=== PATIENT | female | born 1995 | race African-American/Black ===

== ENCOUNTER 2022-10-05 15:42 | Emergency (ER) | payer OTHER ==
[~2022-10-05] VITALS: Ht 165.1 cm; Wt 100.0 kg
[2022-10-05 17:40] VITALS: BP 140/86
[2022-10-05] MEDS ORDERED: DIPHENHYDRAMINE 50MG/ML VIAL IV ONE (18:15)
[2022-10-05] MEDS ORDERED: METOCLOPRAMIDE HCL 10MG/2ML VIAL IV ONE (18:15)
[2022-10-05] MEDS ORDERED: SODIUM CHLORIDE 0.9% 1,000 ML IV ONE (18:15)
[2022-10-05] MEDS ORDERED: KETOROLAC 15MG/ML VIAL IV ONE (18:15)
== END 2022-10-05 20:41 | disposition home or self-care (01) ==
LOC: ER 15:50
DX: R51.9 Headache, unspecified (principal)
CPT/HCPCS: 81025; 96361; 96374; 96375; 99284; J1200; J1885; J2765; J7030; Z7610

== ENCOUNTER 2022-10-06 16:45 | Emergency (ER) | payer MEDICAID, OTHER ==
[~2022-10-06] VITALS: Ht 165.1 cm; Wt 103.0 kg
[2022-10-06 16:55] VITALS: BP 134/91
[2022-10-06] MEDS ORDERED: DIPHENHYDRAMINE 50MG/ML VIAL IV ONE (17:45)
[2022-10-06] MEDS ORDERED: SODIUM CHLORIDE 0.9% 1,000 ML IV ONE (17:45)
[2022-10-06] MEDS ORDERED: METOCLOPRAMIDE HCL 10MG/2ML VIAL IV ONE (17:45)
[2022-10-06] MEDS ORDERED: KETOROLAC 15MG/ML VIAL IV ONE (17:45)
[2022-10-06] MEDS ORDERED: KETOROLAC 15MG/ML VIAL IV NR (23:00)
[2022-10-06] MEDS ORDERED: METOCLOPRAMIDE HCL 10MG/2ML VIAL IV NR (23:00)
[2022-10-06] MEDS ORDERED: DIPHENHYDRAMINE 50MG/ML VIAL IV NR (23:00)
[2022-10-06] MEDS ORDERED: KETOROLAC 60MG/2ML VIAL IM ONE (23:30)
== END 2022-10-07 | disposition home or self-care (01) ==
LOC: ER 16:55
DX: R51.9 Headache, unspecified (principal)
CPT/HCPCS: 70450; 81025; 96361; 96372; 96374; 96375; 96376; 99284; J1200; J1885; J2765; J7030

== ENCOUNTER 2022-10-18 20:10 | Emergency (ER) | payer MEDICAID, OTHER ==
[~2022-10-18] VITALS: Ht 162.6 cm; Wt 104.9 kg
[2022-10-18 20:14] VITALS: BP 127/85
[2022-10-19] MEDS ORDERED: METOCLOPRAMIDE HCL 10MG/2ML VIAL IV ONE
[2022-10-19] MEDS ORDERED: DIPHENHYDRAMINE 50MG/ML VIAL IV ONE
[2022-10-19] MEDS ORDERED: KETOROLAC 15MG/ML VIAL IV ONE
== END 2022-10-19 01:27 | disposition home or self-care (01) ==
LOC: ER 20:10
DX: G43.909 Migraine, unspecified, not intractable, without status migrainosus (principal)
CPT/HCPCS: 81025; 96374; 96375; 99284; J1200; J1885; J2765; Z7610